=== PATIENT | male | born 1995 | race Caucasian/White ===

== ENCOUNTER 2016-12-26 16:05 | Emergency (ER) | payer OTHER ==
[~2016-12-26] VITALS: Ht 177.8 cm; Wt 59.0 kg
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
[2016-12-26] MEDS ORDERED: IOHEXOL 300 MG/ML 75 ML VIAL IV ONE (16:45)
[2016-12-26 16:55] LABS: POTASSIUM ISTAT 4.6 mmol/L (3.5-5.0)
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
[2016-12-26] MEDS ORDERED: NAPR500T PO (17:48)
[2016-12-26 17:50] VITALS: BP 122/74
== END 2016-12-26 17:55 | disposition home or self-care (01) ==
LOC: ER 16:05
DX: S30.1XXA Contusion of abdominal wall, initial encounter (principal); S00.93XA Contusion of unspecified part of head, initial encounter; V49.49XA Driver injured in collision with other motor vehicles in traffic accident, initial encounter; Y93.89 Activity, other specified; Y99.8 Other external cause status; Y92.410 Unspecified street and highway as the place of occurrence of the external cause
CPT/HCPCS: 70450; 71010; 72125; 74177; 80047; 99284; Q9967